=== PATIENT | female | born 1945 | race Caucasian/White ===

== ENCOUNTER 2017-09-07 11:42 | Inpatient (IN) | payer OTHER ==
[2017-09-07] VITALS (12 sets, daily range): BP systolic 129–176; BP diastolic 61–187; PULSE 68–86; TEMP 36.7–37.3; O2SAT 95–98; Ht 172.7 cm; Wt 87.7 kg
[~2017-09-07] VITALS: Ht 172.7 cm; Wt 87.7 kg
[2017-09-07] MEDS ORDERED: SODIUM CHLORIDE 0.9% 1000ML 1,000 ML IV STA (12:07)
--- NOTE | 2017-09-07 12:11 | EMERGENCY ROOM VISIT NOTE ---
History Report prepared by Nupur: Jose Doyle Under the Supervision of: Dr. Max Hackett M.D. First contact with patient: 12:05 Chief Complaint: ABNORMAL LABS Stated Complaint: LOW HEMOGLOBIN History of Present Illness The patient is a 72 year old female who presents to the Emergency Room with an abnormal lab that was detected prior to arrival today. She says that she was seen by her family doctor yesterday for a routine checkup, and had lab work done. She states that she was called this morning by the office that her hemoglobin was low at 6.6. The patient says that she has no symptoms, and has been tired but no more tired than usual. She notes that she had a colonoscopy a year ago and it was fine. The patient denies any fevers, chills, sweats, cough, congestion, melena, hematochezia, rectal bleeding, change in skin tone, recent weight loss, or urinary symptoms. 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 Review of Systems See HPI for pertinent positives and negatives. A total of ten systems were reviewed and were otherwise negative. Past Medical & Surgical Medical Problems: (1) Iron deficiency anemia (2) Low hemoglobin Family History Family history omitted secondary to patient's advanced age. Social History Smoking Status: Current Every Day Smoker Drug Use: none Marital Status: Occupation Status: retired Current/Historical Medications Scheduled Aspirin (Aspirin Ec), 81 MG PO DAILY Atorvastatin (Lipitor), 40 MG PO DAILY Clopidogrel (Plavix), 75 MG PO DAILY Allergies Coded Allergies: NO KNOWN DRUG ALLERGIES (Verified Allergy, Unknown, ., 09/07/17) Physical Exam Vital Signs Date Time Temp Pulse Resp B/P (MAP) Pulse Ox O2 Delivery O2 Flow Rate FiO2 09/07/17 15:05 82 16 95 09/07/17 15:00 146/89 09/07/17 14:35 78 18 100 09/07/17 14:30 138/83 09/07/17 14:05 83 26 97 09/07/17 14:03 97 Room Air 09/07/17 14:00 138/79 09/07/17 13:42 87 20 97 09/07/17 13:30 136/78 09/07/17 13:12 76 12 97 09/07/17 13:09 79 09/07/17 13:02 81 20 130/75 97 Room Air 09/07/17 13:01 130/75 09/07/17 11:49 36.9 98 20 149/77 100 Room Air Physical Exam GENERAL: Awake, alert, well-appearing, in no distress. Slightly pale. HENT: Normocephalic, atraumatic. Dry mucous membranes. EYES: Normal conjunctiva. Sclera non-icteric. NECK: Supple. No nuchal rigidity. FROM. No JVD. RESPIRATORY: Clear to auscultation. CARDIAC: Regular rate, normal rhythm. Extremities warm and well perfused. Pulses equal. ABDOMEN: Soft, non-distended. No tenderness to palpation. No rebound or guarding. No masses. RECTAL: Deferred. MUSCULOSKELETAL: Chest examination reveals no tenderness. The back is symmetrical on inspection without obvious abnormality. There is no CVA tenderness to palpation. No joint edema. LOWER EXTREMITIES: Calves are equal size bilaterally and non-tender. No edema. No discoloration. NEURO: Normal sensorium. No sensory or motor deficits noted. SKIN: No rash or jaundice noted. Slightly pale. Medical Decision & Procedures Laboratory Results 09/07/17 12:40 Red Blood Count 3.34, Mean Corpuscular Volume 73.4, Mean Corpuscular Hemoglobin 19.2, Mean Corpuscular Hemoglobin Concent 26.1, Mean Platelet Volume 10.4, Neutrophils (%) (Auto) 73.3, Lymphocytes (%) (Auto) 16.5, Monocytes (%) (Auto) 8.4, Eosinophils (%) (Auto) 0.9, Basophils (%) (Auto) 0.7, Neutrophils # (Auto) 5.97, Lymphocytes # (Auto) 1.34, Monocytes # (Auto) 0.68, Eosinophils # (Auto) 0.07, Basophils # (Auto) 0.06 09/07/17 12:40 Test 09/07/17 12:40 White Blood Count 8.14 K/uL (4.8-10.8) Red Blood Count 3.34 M/uL (4.2-5.4) Hemoglobin 6.4 g/dL (12.0-16.0) Hematocrit 24.5 % (37-47) Mean Corpuscular Volume 73.4 fL (80-100) Mean Corpuscular Hemoglobin 19.2 pg (25-34) Mean Corpuscular Hemoglobin Concent 26.1 g/dl (32-36) Platelet Count 368 K/uL (130-400) Mean Platelet Volume 10.4 fL (7.4-10.4) Neutrophils (%) (Auto) 73.3 % Lymphocytes (%) (Auto) 16.5 % Monocytes (%) (Auto) 8.4 % Eosinophils (%) (Auto) 0.9 % Basophils (%) (Auto) 0.7 % Neutrophils # (Auto) 5.97 K/uL (1.4-6.5) Lymphocytes # (Auto) 1.34 K/uL (1.2-3.4) Monocytes # (Auto) 0.68 K/uL (0.11-0.59) Eosinophils # (Auto) 0.07 K/uL (0-0.5) Basophils # (Auto) 0.06 K/uL (0-0.2) RDW Standard Deviation 57.4 fL (36.4-46.3) RDW Coefficient of Variation 21.1 % (11.5-14.5) Immature Granulocyte % (Auto) 0.2 % Immature Granulocyte # (Auto) 0.02 K/uL (0.00-0.02) Hypochromasia PRESENT Anisocytosis PRESENT Stomatocytes 2+ Anion Gap 4.0 mmol/L (3-11) Est Creatinine Clear Calc Drug Dose 80.5 ml/min Estimated GFR () 97.3 Estimated GFR (Non- 83.9 BUN/Creatinine Ratio 17.3 (10-20) Calcium Level 9.6 mg/dl (8.5-10.1) Total Bilirubin 0.3 mg/dl (0.2-1) Direct Bilirubin 0.1 mg/dl (0-0.2) Aspartate Amino Transf (AST/SGOT) 13 U/L (15-37) Alanine Aminotransferase (ALT/SGPT) 17 U/L (12-78) Alkaline Phosphatase 101 U/L (45-117) Total Protein 7.2 gm/dl (6.4-8.2) Albumin 3.3 gm/dl (3.4-5.0) Lipase 197 U/L (73-393) Laboratory results reviewed by me Medications Administered Medications (Trade) Dose Ordered Sig/Fazal Route Start Time Stop Time Status Last Admin Dose Admin Sodium Chloride 1,000 ml @ 125 mls/hr Q8H STAT IV 09/07/17 12:07 09/07/17 20:06 DC 09/07/17 12:55 125 MLS/HR ECG Indication: toxicologic Rate (beats per minute): 92 Rhythm: normal sinus Findings: no acute ischemic change, other (normal intervals) ED Course 1205: The patient was evaluated in room C2B. A complete history and physical exam was performed. 1207: Ordered NSS 1000 ml @ 125 mls/hr IV. 1350: Upon reexamination, the patient was resting. I discussed the test results and treatment plan with her. The patient expressed understanding and agreement. The patient will be evaluated for further management. 1357: I discussed the patient with Dr. Kevin Booker rock cutter - he will evaluate the patient for further treatment. Medical Decision I reviewed the patient's past medical history, medications, and the nursing notes as described above. Differential diagnosis includes but is not limited to: anemia chronic disease, anemia due to acute blood loss, anemia due to vitamin deficiency, malignancy. The patient is a 72 y/o woman with a pmhx of iron deficiency anemia who presents to the ED after having outpatient labs showing Hbg of 6.6 per HPI. Patient reports very mild generalized fatigue but nothing significant. On arrival the patient is well-appearing, in NAD, AFVSS. Labs notable for anemia with HBG 6.4. MCV 73.4. Denies any active bleeding such as black or bloody stools. Hemodynamically stable. Patient ordered for 2 units prbcs. Case d/w Ade Bowling hospitalist, who will admit the patient for further evalution and management of anemia. Medication Reconcilliation Current Medication List: was personally reviewed by me Blood Pressure Screening Patient's blood pressure: Elevated blood pressure Blood pressure disposition: Elevated BP felt to be situational Consults Time Called: 1350 Consulting Physician: Dr. Kevin Booker rock cutter Returned Call: 1350 I discussed the patient with Dr. Kevin - [facility] rock cutter - he will evaluate the patient for further treatment. Impression Primary Impression: Anemia Critical Care I have personally spent greater than 35 minutes of critical care time in the direct management of this patient. This includes bedside care, interpretation of diagnostic studies, and testing, discussion with consultants, patient, and family members, and other required patient management activities. This 35 minutes is in excess of all separately billable procedures. Scribe Attestation The scribe's documentation has been prepared under my direction and personally reviewed by me in its entirety. I confirm that the note above accurately reflects all work, treatment, procedures, and medical decision making performed by me. Departure Information Dispostion Being Evaluated By Hospitalist Referrals Madai Galvez D.O. (PCP) Patient Instructions [facility] Problem Qualifiers Primary Impression: Anemia
[2017-09-07 13:20] LABS: HEMATOCRIT 24.5 % (37-47); MEAN CELL VOLUME 73.4 fL (80-100); MEAN CORPUSCULAR HEMOGLOBIN 19.2 pg (25-34); MEAN CORPUSCULAR HGB CONC 26.1 g/dl (32-36); MEAN PLATELET VOLUME 10.4 fL (7.4-10.4); PLATELET COUNT 368 K/uL (130-400); RED BLOOD COUNT 3.34 M/uL (4.2-5.4); WHITE BLOOD COUNT 8.14 K/uL (4.8-10.8)
[2017-09-07 13:29] LABS: BUN/CREATININE RATIO 17.3 (10-20); CALCIUM 9.6 mg/dl (8.5-10.1); CREATININE 0.71 mg/dl (0.60-1.20); POTASSIUM 4.2 mmol/L (3.5-5.1)
[2017-09-07 13:37] LABS: ANISOCYTOSIS PRESENT; BASO % 0.7 %; BASO ABS # 0.06 K/uL (0-0.2); COMPLETE YES; EOS % 0.9 %; HYPOCHROMIA PRESENT; IG% 0.2 %; LYMPH % 16.5 %; LYMPH ABS # 1.34 K/uL (1.2-3.4); MONO % 8.4 %; NEUT % 73.3 %; STOMATOCYTE 2+
[2017-09-07] MEDS ORDERED: ATOR-24 PO (13:51)
[2017-09-07] MEDS ORDERED: ASPI81TA28 PO (13:51)
[2017-09-07] MEDS ORDERED: CLOP1TAB15 PO (13:51)
[2017-09-07] MEDS ORDERED: ALUMINUM/MAGNESIUM/SIMETH (MAALOX MAX) 30 ML UDC PO PRN (15:15)
[2017-09-07] MEDS ORDERED: ONDANSETRON INJ 2 MG/ML 2 ML VIAL IV PRN (15:15)
[2017-09-07 16:58] LABS: MANUAL MICROSCOPIC REQUIRED? NO; REVIEW REQ? NO; URINE APPEARANCE CLEAR (CLEAR); URINE BILIRUBIN NEG (NEG); URINE COLOR YELLOW; URINE NITRITE NEG (NEG); URINE PH 7.5 (4.5-7.5); URINE SPECIFIC GRAVITY 1.012 (1.000-1.030); UROBILINOGEN NEG (NEG); ZZUR CULT IF INDIC CLEAN CATCH NO
[2017-09-07] MEDS: SODIUM CHLORIDE 0.9% 1000ML 1,000 ML IV SCH (20:17)
--- NOTE | 2017-09-07 20:44 | History and Physical ---
History & Physical Date & Time of Service: Sep 07, 2017 at 20:20 Chief Complaint: Anemia, Iron Deficiency Anemia Primary Care Physician: Madai Galvez D.O. History of Present Illness Source: patient, family, clinic records, hospital records This is a 72 year old female with a PMH of peripheral vascular disease s/p stenting of the superficial femoral artery on the L, tobacco use disorder, iron deficiency anemia - sent from Dr. Galvez's office due to low Hgb in the 6 range. As per patient, her only symptoms is fatigue. Denies shortness of breath/ chest pain, denies abdominal pain, denies blood in the stool or urine. Upon presentation, she had Hgb of 6.4. She states she's had this anemia problem in the past and was once receiving IV Venofer infusions. At some point, a few years back, she states that her iron levels normalized and this was stopped. She has not been on iron supplementation since then. States for the past year, she has a stent placed in her L SFA. Has been on Plavix since then. Does not have any signs of bleeding. Past Medical/Surgical History Medical Problems: (1) Low hemoglobin Status: Chronic Social History Smoking Status: Current Every Day Smoker Drug Use: none Marital Status: Occupational Status: retired Allergies Coded Allergies: NO KNOWN DRUG ALLERGIES (Verified Allergy, Unknown, ., 09/07/17) Home Medications Scheduled Aspirin (Aspirin Ec), 81 MG PO DAILY Atorvastatin (Lipitor), 40 MG PO DAILY Clopidogrel (Plavix), 75 MG PO DAILY Review of Systems Constitutional: + weakness, + fatigue, No fever, No chills Eyes: No worsening of vision ENT: No hearing loss Respiratory: No cough, No sputum, No wheezing, No shortness of breath, No dyspnea on exertion, No dyspnea at rest, No hemoptysis Cardiovascular: No chest pain, No edema, No palpitations Abdomen: No pain, No nausea, No vomiting, No diarrhea, No constipation, No GI bleeding Musculoskeletal: No joint pain, No muscle pain Genitourinary - Female: No dysuria, No urinary frequency, No urinary urgency, No hematuria Neurologic: No weakness, No numbness/tingling Psychiatric: No depression symptoms, No anxiety, No insomnia Endocrine: No fatigue Hematologic / Lymphatic: No abnormal bleeding/bruising, No clotting problems, No swollen lymph nodes Integumentary: No rash Allergic / Immunologic: No environmental allergies, No seasonal allergies Physical Exam Vital Signs Date Time Temp Pulse Resp B/P (MAP) Pulse Ox O2 Delivery O2 Flow Rate FiO2 09/07/17 19:33 37.1 86 18 143/62 (89) 97 Room Air 09/07/17 19:30 37.1 86 18 143/62 97 09/07/17 18:48 37.2 70 18 164/86 96 09/07/17 18:00 37.3 70 18 173/89 96 09/07/17 17:46 37.0 69 162/61 97 09/07/17 17:30 37.2 75 18 167/187 95 09/07/17 16:45 36.9 86 16 176/81 (112) 97 Room Air 0.0 09/07/17 16:45 95 Room Air 09/07/17 16:38 36.8 74 22 144/71 97 09/07/17 16:37 74 22 144/71 97 Room Air 09/07/17 16:00 144/92 09/07/17 15:51 74 22 97 09/07/17 15:46 150/89 09/07/17 15:46 36.8 70 18 150/89 97 09/07/17 15:35 79 18 95 09/07/17 15:31 36.8 78 18 152/99 96 09/07/17 15:30 152/99 09/07/17 15:15 144/87 09/07/17 15:15 36.7 81 16 144/87 97 0.0 09/07/17 15:05 82 16 95 09/07/17 15:00 146/89 09/07/17 14:35 78 18 100 09/07/17 14:30 138/83 09/07/17 14:05 83 26 97 09/07/17 14:03 97 Room Air 09/07/17 14:00 138/79 09/07/17 13:42 87 20 97 09/07/17 13:30 136/78 09/07/17 13:12 76 12 97 09/07/17 13:09 79 09/07/17 13:02 81 20 130/75 97 Room Air 09/07/17 13:01 130/75 09/07/17 11:49 36.9 98 20 149/77 100 Room Air General Appearance: no apparent distress Head: normocephalic, atraumatic Eyes: normal inspection ENT: hearing grossly normal Neck: supple Respiratory/Chest: chest non-tender, lungs clear, normal breath sounds, no respiratory distress, no accessory muscle use Cardiovascular: regular rate, rhythm, no edema, no gallop, no JVD, no murmur, normal peripheral pulses Abdomen/GI: normal bowel sounds, non tender, soft Extremities/Musculoskelatal: normal inspection, no calf tenderness, normal capillary refill, no pedal edema, normal range of motion Neurologic/Psych: 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, no motor/sensory deficits, alert, normal mood/affect, oriented x 3 Skin: normal color Lymphatic: no adenopathy Diagnostics Laboratory Results Results Past 24 Hours Test 09/07/17 12:40 09/07/17 16:40 09/07/17 20:00 Range/Units White Blood Count 8.14 4.8-10.8 K/uL Red Blood Count 3.34 4.2-5.4 M/uL Hemoglobin 6.4 12.0-16.0 g/dL Hematocrit 24.5 37-47 % Mean Corpuscular Volume 73.4 80-100 fL Mean Corpuscular Hemoglobin 19.2 25-34 pg Mean Corpuscular Hemoglobin Concent 26.1 32-36 g/dl Platelet Count 368 130-400 K/uL Mean Platelet Volume 10.4 7.4-10.4 fL Neutrophils (%) (Auto) 73.3 % Lymphocytes (%) (Auto) 16.5 % Monocytes (%) (Auto) 8.4 % Eosinophils (%) (Auto) 0.9 % Basophils (%) (Auto) 0.7 % Neutrophils # (Auto) 5.97 1.4-6.5 K/uL Lymphocytes # (Auto) 1.34 1.2-3.4 K/uL Monocytes # (Auto) 0.68 0.11-0.59 K/uL Eosinophils # (Auto) 0.07 0-0.5 K/uL Basophils # (Auto) 0.06 0-0.2 K/uL RDW Standard Deviation 57.4 36.4-46.3 fL RDW Coefficient of Variation 21.1 11.5-14.5 % Immature Granulocyte % (Auto) 0.2 % Immature Granulocyte # (Auto) 0.02 0.00-0.02 K/uL Hypochromasia PRESENT Anisocytosis PRESENT Stomatocytes 2+ Sodium Level 137 136-145 mmol/L Potassium Level 4.2 3.5-5.1 mmol/L Chloride Level 107 98-107 mmol/L Carbon Dioxide Level 26 21-32 mmol/L Anion Gap 4.0 3-11 mmol/L Blood Urea Nitrogen 12 7-18 mg/dl Creatinine 0.71 0.60-1.20 mg/dl Est Creatinine Clear Calc Drug Dose 80.5 ml/min Estimated GFR () 97.3 Estimated GFR (Non- 83.9 BUN/Creatinine Ratio 17.3 10-20 Random Glucose 103 70-99 mg/dl Calcium Level 9.6 8.5-10.1 mg/dl Total Bilirubin 0.3 0.2-1 mg/dl Direct Bilirubin 0.1 0-0.2 mg/dl Aspartate Amino Transf (AST/SGOT) 13 15-37 U/L Alanine Aminotransferase (ALT/SGPT) 17 12-78 U/L Alkaline Phosphatase 101 45-117 U/L Total Protein 7.2 6.4-8.2 gm/dl Albumin 3.3 3.4-5.0 gm/dl Lipase 197 73-393 U/L Urine Color YELLOW Urine Appearance CLEAR CLEAR Urine pH 7.5 4.5-7.5 Urine Specific [place] 1.012 1.000-1.030 Urine Protein NEG NEG Urine Glucose (UA) NEG NEG Urine Ketones NEG NEG Urine Occult Blood NEG NEG Urine Nitrite NEG NEG Urine Bilirubin NEG NEG Urine Urobilinogen NEG NEG Urine Leukocyte Esterase TRACE NEG Urine WBC (Auto) 1-5 0-5 /hpf Urine RBC (Auto) 0-4 0-4 /hpf Urine Hyaline Casts (Auto) 0 0-5 /lpf Urine Epithelial Cells (Auto) 5-10 0-5 /lpf Urine Bacteria (Auto) NEG NEG EKG Normal sinus rhythm Normal ECG Impression Assessment and Plan This is a 72 year old female with a PMH of peripheral vascular disease s/p stenting of the superficial femoral artery on the L, tobacco use disorder, iron deficiency anemia - sent from PCP due to anemia Anemia iron deficiency anemia, no signs of bleeding will check stool occult, check UA for hematuria Hgb is 6.4 transfuse two units pRBCs check H/H four hours post-transfusion, check CBC in AM started on ferrous sulfate 325mg - outpatient labwork suggests iron deficiency, with low iron levels, high TIBC holding aspirin and Plavix for now consult GI for possible colonoscopy Peripheral Vascular Disease outpatient vascular follow-up continue statin hold aspirin + Plavix for now due to anemia Tobacco Use Disorder counseled on cessation DVT ppx SCDs FULL CODE Advanced Directives Existing Living Will: No Existing Power of Car Seat Upholsterer: No VTE Prophylaxis VTE Risk Assessment Done? Y/N: Yes Risk Level: Moderate
[2017-09-07 21:37] LABS: HEMATOCRIT 27.7 % (37-47)
[2017-09-08 04:00] VITALS: BP 171/77; PULSE 69; TEMP 37.1; O2SAT 98
[2017-09-08 07:25] LABS: HEMATOCRIT 27.9 % (37-47); MEAN CORPUSCULAR HEMOGLOBIN 21.2 pg (25-34); MEAN CORPUSCULAR HGB CONC 28.3 g/dl (32-36); MEAN PLATELET VOLUME 10.1 fL (7.4-10.4); PLATELET COUNT 315 K/uL (130-400); RED BLOOD COUNT 3.72 M/uL (4.2-5.4); WHITE BLOOD COUNT 7.15 K/uL (4.8-10.8)
[2017-09-08 07:38] LABS: CALCIUM 8.9 mg/dl (8.5-10.1); CREATININE 0.69 mg/dl (0.60-1.20); POTASSIUM 3.8 mmol/L (3.5-5.1)
[2017-09-08] MEDS: ATORVASTATIN 40 MG TAB PO SCH (07:39)
[2017-09-08] MEDS: FERROUS SULFATE 325 MG TAB PO SCH (07:39)
[2017-09-08 07:44] VITALS: BP 174/83; PULSE 86; TEMP 37.1; O2SAT 97
[2017-09-08] MEDS: SODIUM CHLORIDE 0.9% 1000ML 1,000 ML IV SCH ×2 (10:28→16:03)
[2017-09-08 11:34] VITALS: BP 166/86; PULSE 69; TEMP 37.1; O2SAT 97
[2017-09-08] MEDS ORDERED: NURSING VERBAL MED ORDER ONE (12:00)
[2017-09-08 15:12] VITALS: BP 138/71; PULSE 71; TEMP 36.8; O2SAT 96
--- NOTE | 2017-09-08 15:54 | GASTROINTESTINAL CONSULTATION ---
DATE OF CONSULTATION: 09/08/2017 AGE: 72. SEX: Female. RACE: . ATTENDING PHYSICIAN: Nissa Brown DO CONSULTING PHYSICIAN: Gigi Carrillo DO REASON FOR CONSULTATION: Iron deficiency anemia. HISTORY OF PRESENT ILLNESS: Mira Jett is a 72-year-old female with a past medical history of peripheral vascular disease with a stent of the femoral artery on the left side, most likely associated with her past tobacco use. She was having outpatient blood work done and was noted to have an H&H in the range of 6 on Saturday and was subsequently contacted and told to be evaluated at the Department of Emergency Medicine on Saturday. Upon arrival, she was noted to have an H&H of 6.4 and 24.5. She did receive 2 units of packed red blood cells and had improvement of her H&H to 8.0 and 27.7. The patient herself denies any abdominal pain. She does state that she takes ibuprofen intermittently approximately 2-3 times a week. She states that she has had no evidence of hematemesis or melena and does admit to having a colonoscopy done within the past year by Dr. Dan at [facility] endoscopy at [facility]. She states that she was told that her colonoscopy was essentially normal, although I do not have these records at present. She has never undergone an upper endoscopy. She denies any lightheadedness, dizziness, fevers, chills, nausea, vomiting, chest pain, shortness of breath, cough, dysuria, hematuria, arthralgias, myalgias, numbness or tingling in her extremities, skin rash or any other complaints at present. PAST MEDICAL HISTORY: Significant for peripheral artery disease, iron deficiency anemia of unknown cause, hyperlipidemia. PAST SURGICAL HISTORY: Includes the femoral artery stent on the left as well as a colonoscopy done last year by Dr. Dan. ALLERGIES: None. MEDICATIONS: At present include Feosol 325 mg p.o. q.a.m., Lipitor 40 mg p.o. daily, Maalox 15 mL p.o. q. 4 p.r.n. dyspepsia, Zofran 4 mg IV q. 6 p.r.n. nausea. SOCIAL HISTORY: She is . She continues to smoke daily. She denies any alcohol or illicit drug use. FAMILY HISTORY: Negative for GI malignancy or inflammatory bowel disease. REVIEW OF SYSTEMS: Negative x12 system review other than pertinent positives listed in the HPI. PHYSICAL EXAMINATION: VITAL SIGNS: Temperature 37.1, pulse 69, respirations 18, blood pressure 166/86, pulse ox 97% on room air. GENERAL: Awake, cooperative in no acute distress. HEAD: Normocephalic, atraumatic. EYES: Pupils equally round. Extraocular muscles are intact. ENT: External evaluation of ears and nose are normal. Oropharynx is clear. NECK: Soft, supple. No JVD or lymphadenopathy. CHEST: Clear to auscultation bilaterally. CARDIOVASCULAR SYSTEM: Regular rate and rhythm. ABDOMEN: Soft, nontender, nondistended. Positive bowel sounds. There is no hepatosplenomegaly or stigmata of chronic liver disease. EXTREMITIES: No clubbing, cyanosis, or edema. SKIN: Noted pallor. LABORATORY STUDIES: Reviewed in the HPI. IMPRESSION: A 72-year-old female with iron deficiency anemia of unknown etiology. PLAN: At the present time, I would recommend the addition of Protonix 40 mg by mouth twice daily. I would also recommend that she be given clear liquids today, be kept n.p.o. after midnight and undergo an upper endoscopy tomorrow. It is unlikely that she has a lower GI bleeding source as she has seen no blood and had a colonoscopy by Dr. Dan within the past year. I would recommend transfusing her as needed to maintain her H&H around 8 and 24. Once again, thanks for allowing me to participate in the care of this patient. If you have any further questions, please do not hesitate in contacting me.
[2017-09-08 17:55] LABS: HEMATOCRIT 28.9 % (37-47); MEAN CELL VOLUME 76.1 fL (80-100); MEAN CORPUSCULAR HEMOGLOBIN 21.6 pg (25-34); MEAN CORPUSCULAR HGB CONC 28.4 g/dl (32-36); MEAN PLATELET VOLUME 10.6 fL (7.4-10.4); PLATELET COUNT 342 K/uL (130-400); WHITE BLOOD COUNT 7.34 K/uL (4.8-10.8)
--- NOTE | 2017-09-08 19:19 | Progress Note ---
Medicine Progress Note Date & Time of Visit: Sep 08, 2017 at 19:19. Subjective Patient reports feeling well; denies any CP, SOB, palpitations, dizziness or lightheadedness. Has been ambulating without difficulty. No overnight events noted. No other complaints. Objective Last 8 Hrs Date Time Temp Pulse Resp B/P (MAP) Pulse Ox O2 Delivery O2 Flow Rate FiO2 09/08/17 16:00 Room Air 09/08/17 15:12 36.8 71 16 138/71 (93) 96 Room Air 09/08/17 12:00 Room Air 09/08/17 11:34 37.1 69 18 166/86 (112) 97 Room Air Physical Exam: GENERAL: Patient is in no acute distress. HEENT: No acute trauma, normocephalic, mucous membranes moist, no nasal congestion, no scleral icterus. NECK: No stridor, trachea is midline. LUNGS: Clear to auscultation bilaterally, no wheeze, no rhonchi, breath sounds equal. HEART: Without murmurs gallops or rubs, regular rate and rhythm. ABDOMEN: Soft, nontender, bowel sounds positive EXTREMITIES: No cyanosis or edema NEUROLOGIC: Oriented x 3, no acute motor or sensory deficits, no focal weakness. SKIN: No rash, no jaundice, no diaphoresis. Laboratory Results: Last 24 Hours Test 09/07/17 21:12 09/08/17 06:42 09/08/17 17:09 Hemoglobin 8.0 g/dL 7.9 g/dL 8.2 g/dL Hematocrit 27.7 % 27.9 % 28.9 % White Blood Count 7.15 K/uL 7.34 K/uL Red Blood Count 3.72 M/uL 3.80 M/uL Mean Corpuscular Volume 75.0 fL 76.1 fL Mean Corpuscular Hemoglobin 21.2 pg 21.6 pg Mean Corpuscular Hemoglobin Concent 28.3 g/dl 28.4 g/dl RDW Standard Deviation 55.6 fL 56.7 fL RDW Coefficient of Variation 20.3 % 20.3 % Platelet Count 315 K/uL 342 K/uL Mean Platelet Volume 10.1 fL 10.6 fL Sodium Level 141 mmol/L Potassium Level 3.8 mmol/L Chloride Level 109 mmol/L Carbon Dioxide Level 25 mmol/L Anion Gap 7.0 mmol/L Blood Urea Nitrogen 10 mg/dl Creatinine 0.69 mg/dl Est Creatinine Clear Calc Drug Dose 83.2 ml/min Estimated GFR () 99.4 Estimated GFR (Non- 85.8 BUN/Creatinine Ratio 15.0 Random Glucose 89 mg/dl Calcium Level 8.9 mg/dl Assessment & Plan ANEMIA: iron deficiency -iron deficiency anemia, no signs of bleeding -check FOBT -Hb was 6.4-->received transfusion with 2 units PRBCs-->8.0-->Hb: 8.2 today -continue on ferrous sulfate 325mg - outpatient labwork suggests iron deficiency , with low iron levels, high TIBC -holding aspirin and Plavix for now -GI consulted, planning for endoscopy tomorrow; NPO after midnight PVD: -no acute issues -outpatient vascular follow-up -continue statin -aspirin + Plavix held for now due to anemia NICOTINE DEPENDANCE: -smoking cessation encouraged Current Inpatient Medications: Current Inpatient Medications Medications (Trade) Dose Ordered Sig/Fazal Route Start Time Stop Time Status Last Admin Dose Admin Sodium Chloride 1,000 ml @ 80 mls/hr [id number] IV 09/07/17 16:30 10/07/17 16:29 09/07/17 20:17 80 MLS/HR Al Hydrox/Mg Hydrox/Simethicone (Maalox Max Susp) 15 ml Q4H PRN PO 09/07/17 15:15 10/07/17 15:14 Ondansetron HCl (Zofran Inj) 4 mg Q6H PRN IV 09/07/17 15:15 10/07/17 15:14 Ferrous Sulfate (Feosol Tab) 325 mg QAM PO 09/08/17 09:00 10/08/17 08:59 09/08/17 07:39 325 MG Atorvastatin Calcium (Lipitor Tab) 40 mg DAILY PO 09/08/17 09:00 10/08/17 08:59 09/08/17 07:39 40 MG Pantoprazole Sodium (Protonix Tab) 40 mg BID PO 09/08/17 21:00 10/08/17 20:59
[2017-09-08 19:22] VITALS: BP 154/82; PULSE 67; TEMP 37.2; O2SAT 98
[2017-09-08] MEDS: PANTOprazole SOD 40 MG TAB PO SCH (21:06)
[2017-09-08 23:17] VITALS: BP 152/81; PULSE 66; TEMP 36.6; O2SAT 97
[2017-09-09 03:45] VITALS: BP 151/77; PULSE 66; TEMP 37.2; O2SAT 94
[2017-09-09] MEDS ORDERED: NURSING VERBAL MED ORDER ONE (06:15)
[2017-09-09 08:08] VITALS: BP 133/71; PULSE 69; TEMP 37.1; O2SAT 94
[2017-09-09] MEDS: FERROUS SULFATE 325 MG TAB PO SCH (08:54)
[2017-09-09] MEDS: ATORVASTATIN 40 MG TAB PO SCH (08:54)
[2017-09-09] MEDS: PANTOprazole SOD 40 MG TAB PO SCH (08:55)
[2017-09-09] MEDS ORDERED: SODIUM CHLORIDE 0.9% 500ML 500 ML IV ONE (11:13)
--- NOTE | 2017-09-09 11:21 | Endo History and Physical ---
History & Physical Date of Service: Sep 09, 2017. Chief Complaint: Referring Physician: History of Present Illness Patient for EGD for FLAKO Past Surgical History Hx Cardiac Surgery: No Hx Abdominal Surgery: No Hx Post-Op Nausea and Vomiting: No Hx Cancer Surgery: No Hx Thoracic Surgery: No Hx Orthopedic: No Hx Urinary Tract Surgery: No Social History Smoking Status: Current Every Day Smoker Hx Substance Use: No Hx Alcohol Use: Yes (very seldom, last night last time, 3 X year) Allergies Coded Allergies: NO KNOWN DRUG ALLERGIES (Verified Allergy, Unknown, ., 09/07/17) Current Medications Reported Home Medications Medications Dose Route/Sig Max Daily Dose Days Date Category Lipitor (Atorvastatin Calcium) 40 Mg Tab 40 Mg PO DAILY 09/07/17 Reported Aspirin Ec (Aspirin) 81 Mg Tab 81 Mg PO DAILY 09/07/17 Reported Plavix (Clopidogrel Bisulfate) 75 Mg Tab 75 Mg PO DAILY 09/07/17 Reported Vital Signs Weight (Kilograms): 87.700 Height (Feet): 5 Height (Inches): 8.00 Date Time Temp Pulse Resp B/P (MAP) Pulse Ox O2 Delivery O2 Flow Rate FiO2 09/09/17 10:39 36.8 76 20 147/71 (96) 96 Room Air 09/09/17 08:08 37.1 69 18 133/71 (91) 94 Room Air 09/09/17 08:00 Room Air 09/09/17 04:00 Room Air 09/09/17 03:45 37.2 66 18 151/77 (101) 94 Room Air 09/09/17 00:00 Room Air 09/08/17 23:17 36.6 66 20 152/81 (104) 97 Room Air 09/08/17 20:00 Room Air 09/08/17 19:22 37.2 67 18 154/82 (106) 98 Room Air 09/08/17 16:00 Room Air 09/08/17 15:12 36.8 71 16 138/71 (93) 96 Room Air 09/08/17 12:00 Room Air 09/08/17 11:34 37.1 69 18 166/86 (112) 97 Room Air Physical Exam General Appearance: no apparent distress Respiratory/Chest: Auscultation: breath sounds normal Cardiovascular: Heart Auscultation: RRR Abdomen: Bowel Sounds: normal Inspection & Palpation: soft, non-distended Assessment and Plan Stable for EGD. Consented.
[2017-09-09] MEDS ORDERED: LIDOCAINE HCL 2% 2 ML VIAL (20MG/ML) ONE (11:39)
[2017-09-09] MEDS ORDERED: PROPOFOL IV EMULSION 10 MG/ML 20 ML VIAL IV ONE (11:39)
--- NOTE | 2017-09-09 11:44 | GI REPORT ---
Procedure Date: 09/09/2017 10:47 AM Procedure: Upper GI endoscopy Indications: Iron deficiency anemia Medicines: Monitored Anesthesia Care Complications: No immediate complications. Estimated Blood Loss: Estimated blood loss: none. Procedure: Pre-Anesthesia Assessment: - Prior to the procedure, a History and Physical was performed, and patient medications and allergies were reviewed. The patient is competent. The risks and benefits of the procedure and the sedation options and risks were discussed with the patient. All questions were answered and informed consent was obtained. Patient identification and proposed procedure were verified by the physician and the nurse in the procedure room. Mental Status Examination: alert and oriented. Airway Examination: normal oropharyngeal airway and neck mobility. Respiratory Examination: clear to auscultation. CV Examination: normal. ASA Grade Assessment: III - A patient with severe systemic disease. After reviewing the risks and benefits, the patient was deemed in satisfactory condition to undergo the procedure. The anesthesia plan was to use monitored anesthesia care (MAC). Immediately prior to administration of medications, the patient was re-assessed for adequacy to receive sedatives. The heart rate, respiratory rate, oxygen saturations, blood pressure, adequacy of pulmonary ventilation, and response to care were monitored throughout the procedure. The physical status of the patient was re-assessed after the procedure. After obtaining informed consent, the endoscope was passed under direct vision. Throughout the procedure, the patient's blood pressure, pulse, and oxygen saturations were monitored continuously. The scope was introduced through the mouth, and advanced to the second part of duodenum. The upper GI endoscopy was accomplished without difficulty. The patient tolerated the procedure well. Findings: LA Grade C (one or more mucosal breaks continuous between tops of 2 or more mucosal folds, less than 75% circumference) esophagitis/ Carditis with no bleeding was found in the lower third of the esophagus. A small hiatus hernia was present. Z-line at 40cm from incisors. A few, small non-bleeding erosions were found in the gastric antrum. Biopsies were taken with a cold forceps for Helicobacter pylori testing. Verification of patient identification for the specimen was done by the physician and nurse using the patient's name and date. The duodenal bulb and 2nd part of the duodenum were normal. Impression: - LA Grade C reflux esophagitis/ Carditis. - Small hiatus hernia. - Non-bleeding erosive gastropathy. Biopsied. - Normal duodenal bulb and 2nd part of the duodenum. Recommendation: - [facility] patient to [facility] care. - Resume regular diet. - Follow an antireflux regimen. - Use Protonix (pantoprazole) 40 mg PO BID for 2 months then continue once daily based on symptoms. - Repeat the upper endoscopy in 2 months to check healing. - Can resume anticoagulant/ antiplatelets at prior dose. Basia Ochoa MD 09/09/2017 11:43:33 AM This report has been signed electronically. Note Initiated On: 09/09/2017 10:47 AM I attest to the content of the Intraoperative Record and orders documented therein, exceptions below
--- NOTE | 2017-09-09 12:15 | Anesthesiology Progress Note ---
Anesthesia Post Op Note Date & Time Sep 09, 2017 at 12:14 Vital Signs Pain Intensity: 0.0 Vital Signs Past 12 Hours Date Time Temp Pulse Resp B/P (MAP) Pulse Ox O2 Delivery O2 Flow Rate FiO2 09/09/17 12:11 68 16 154/78 (103) 95 Room Air 09/09/17 11:56 67 16 146/77 (100) 96 Room Air 09/09/17 11:41 77 16 120/66 (84) 95 Room Air 09/09/17 10:39 36.8 76 20 147/71 (96) 96 Room Air 09/09/17 08:08 37.1 69 18 133/71 (91) 94 Room Air 09/09/17 08:00 Room Air 09/09/17 04:00 Room Air 09/09/17 03:45 37.2 66 18 151/77 (101) 94 Room Air Notes Mental Status: alert / awake / arousable, participated in evaluation Pt Amnestic to Procedure: Yes Nausea / Vomiting: adequately controlled Pain: adequately controlled Airway Patency, RR, SpO2: stable & adequate BP & HR: stable & adequate Hydration State: stable & adequate Anesthetic Complications: no major complications apparent
[2017-09-09 13:10] VITALS: BP 155/80; PULSE 67; TEMP 36.9; O2SAT 95
[2017-09-09 14:27] VITALS: BP 128/63; PULSE 76
[2017-09-09] MEDS ORDERED: PRT40 PO (14:44)
--- NOTE | 2017-09-09 14:47 | Discharge Instructions ---
Discharge Instructions Date of Service Sep 09, 2017. Admission Reason for Admission: Anemia, Iron Deficiency Anemia Discharge Discharge Diagnosis / Problem: Anemia, iron deficiency Discharge Goals Goal(s): Therapeutic intervention Activity Recommendations Activity Limitations: resume your previous activity . Instructions / Follow-Up Instructions / Follow-Up Please take the iron supplement Ferrous sulfate 325 mg, twice a day with meals and use Miralax (or generic brand) one capful 1-2 times daily to help with constipation Please see Dr. Galvez on Saturday, September 16 at 3:45PM for hospital follow up and repeat labs Please see GI for a repeat EGD in 2 months Current Hospital Diet Patient's current hospital diet: AHA Diet (Heart Healthy) Discharge Diet Recommended Diet: AHA Diet (Heart Healthy) Procedures Procedures Performed: EGD Pending Studies Studies pending at discharge: no Medical Emergencies . Who to Call and When: Medical Emergencies: If at any time you feel your situation is an emergency, please call 911 immediately. . Non-Emergent Contact Non-Emergency issues call your: Primary Care Provider . . "Provider Documentation" section prepared by Lauren Coyle. . VTE Core Measure Inpt VTE Proph given/why not?: SCD's
--- NOTE | 2017-09-09 14:49 | Discharge Summary ---
Discharge Summary Date of Service Sep 09, 2017. Discharge Summary Admission Date: Sep 07, 2017 at 15:12 Discharge Date: Sep 09, 2017 Admission Information HPI (per Admitting provider): This is a 72 year old female with a PMH of peripheral vascular disease s/p stenting of the superficial femoral artery on the L, tobacco use disorder, iron deficiency anemia - sent from Dr. Galvez's office due to low Hgb in the 6 range. As per patient, her only symptoms is fatigue. Denies shortness of breath/ chest pain, denies abdominal pain, denies blood in the stool or urine. Upon presentation, she had Hgb of 6.4. She states she's had this anemia problem in the past and was once receiving IV Venofer infusions. At some point, a few years back, she states that her iron levels normalized and this was stopped. She has not been on iron supplementation since then. States for the past year, she has a stent placed in her L SFA. Has been on Plavix since then. Does not have any signs of bleeding. 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, no motor/sensory deficits, alert , normal mood/affect, oriented x 3 Skin: normal color Lymphatic: no adenopathy Hospital Course ANEMIA: iron deficiency -iron deficiency anemia, no signs of bleeding -check FOBT -Hb was 6.4-->received transfusion with 2 units PRBCs-->8.0-->Hb: 8.2 today -continue on ferrous sulfate 325mg - outpatient labwork suggests iron deficiency , with low iron levels, high TIBC -holding aspirin and Plavix for now -GI consulted, planning for endoscopy tomorrow; NPO after midnight PVD: -no acute issues -outpatient vascular follow-up -continue statin -aspirin + Plavix held for now due to anemia NICOTINE DEPENDANCE: -smoking cessation encouraged Total time spent on discharge = This includes examination of the patient, discharge planning, medication reconciliation, and communication with other providers.
[2017-09-09 15:05] VITALS: BP 128/63; PULSE 76; TEMP 36.9; O2SAT 95
== END 2017-09-09 15:30 | disposition home or self-care (01) | DRG 812 ==
LOC: C.EDB 11:44 → C.2E 15:12 → ENRESERV 15:34
PROVIDERS: ADMIT Family Medicine; ATTEND Internal Medicine
PROC: 0DB68ZX Excision of Stomach, Via Natural or Artificial Opening Endoscopic, Diagnostic (ICD-10-PCS; principal; 2017-09-09 10:33)
DX: D50.9 Iron deficiency anemia, unspecified (principal); F17.200 Nicotine dependence, unspecified, uncomplicated; Z95.828 Presence of other vascular implants and grafts; I73.9 Peripheral vascular disease, unspecified; Z79.01 Long term (current) use of anticoagulants; K29.00 Acute gastritis without bleeding; K44.9 Diaphragmatic hernia without obstruction or gangrene

== ENCOUNTER → 2017-12-24 | Day surgery (SDC) | payer OTHER ==
[2017-11-27 13:34] VITALS: Ht 175.3 cm; Wt 84.1 kg
[~2017-12-24] VITALS: Ht 175.3 cm; Wt 84.1 kg
[~2017-12-24] MED LIST: 500ML BSS 0.3ML EPI 1:1000PF IRRIG ONE; ACETAMINOPHEN 325 MG TAB PO PRN; AMVISC PLUS 0.8ML SYRINGE INT OCU ONE; ASPCH81X PO; ATOR-24 PO; ATROPINE SULFATE 0.1 MG/ML 5ML SYR IV PRN; BSS FLUSH ONE; EpHEDrine SULFATE INJ 50 MG/ML AMP IV PRN; EpINEphrine INJ 1MG/ML AMP 1 MG/ML AMP ONE; FENTANYL CITRATE INJ 50 MCG/1 ML 2 ML VIAL IV PRN; IRON PO; LACTATED RINGER'S 1000ML 500 ML IV SCH; LIDOCAINE 3.5% OPH GEL PER APPLICATION CHARGE ONE; LIDOCAINE HCL 1% MPF 2 ML VIAL ONE; MIDAZOLAM HCL 1 MG/ML 2ML VIAL ONE; OCUCOAT 1 ML SOLN IO ONE; ONDANSETRON INJ 2 MG/ML 2 ML VIAL IV PRN; PANT1TAB3 PO; PLAVIX75 PO; POVIDONE-IODINE OP SOLN 30 ML BTL ONE; PROPARACAINE 0.5% OP SOLN PER DROP CHARGE OPL SCH; TOBRAMYCIN/DEXAMETHASONE OPH OINT PER APPLN CHARGE ONE
[2017-12-24] MEDS: PHENYLEPHRINE HCL 2.5% OP SOLN PER DROP CHARGE OPL SCH ×2 (07:50→07:55)
[2017-12-24] MEDS: TROPICAMIDE 1% OP SOLN PER DROP CHARGE OPL SCH ×2 (07:51→07:56)
[2017-12-24] MEDS: CYCLOPENTOLATE HCL 1% OP SOLN PER DROP CHARGE OPL SCH ×2 (07:52→07:57)
[2017-12-24] MEDS: KETOROLAC 0.5% OP SOLN PER DROP CHARGE OPL SCH ×2 (07:53→07:58)
[2017-12-24] MEDS: GATIFLOXACIN OP SOLN PER DROP CHARGE OPL SCH ×2 (07:54→08:04)
--- NOTE | 2017-12-24 08:23 | History & Physical Bridge - SC ---
H&P Re-Evaluation Bridge Note: I have examined the patient, reviewed the History & Physical and in the interval since the performance of the History & Physical I have noted the following changes of clinical significance: No changes noted
--- NOTE | 2017-12-24 09:13 | [facility] Operative Report ---
Operative Report Date of Service Dec 24, 2017. Operative Report 1. PREOPERATIVE DIAGNOSIS: Cataract of the left eye. 2. POSTOPERATIVE DIAGNOSIS: Same. 3. PROCEDURE: Phacoemulsification with intraocular lens implantation of the left eye. SURGEON: Dr. Ronny Kennedy. ANESTHESIA: Topical Lidocaine gel, 1% Non- Preserved intracameral Lidocaine, and monitored intravenous sedation. INDICATIONS FOR THE PROCEDURE: The patient is a 72 - year-old female with a history of cataract of the left eye causing significant visual impairment. The details of the proposed procedure were explained to the patient who asked appropriate questions and following discussion of all risks, benefits and alternatives agreed to have the procedure done. 4. OPERATION AND FINDINGS: DESCRIPTION OF PROCEDURE: After informed consent was obtained, the patient was brought to the Operating Room at the [facility]. The patient was placed in a supine position and then the left eye was prepped and draped in the usual sterile fashion for intraocular surgery. A drop of topical Lidocaine gel was placed in the operative eye. A wire lid speculum was then placed in the fornices. A corneal paracentesis was then created temporally. The Non-Preserved Lidocaine was then instilled into the anterior chamber. The anterior chamber was then pressurized with viscoelastic. A 2.0 mm clear corneal incision was then created temporally. A cystotome was inserted into the anterior chamber and used to create a tear in the anterior lens capsule. This capsular tear was then used to create a small flap and the flap was dragged in a counterclockwise direction in order to create a continuous curvilinear capsulorrhexis. Hydrodissection was accomplished with balanced salt solution. Phacoemulsification of the lens nucleus was then performed in a standard [id number] technique. The phaco time was 53 seconds with an average power of 25 %. The remaining cortical material was removed using irrigation aspiration. The capsular bag was then filled with viscoelastic. A [employer] MI60L +18.5 diopters lens was then loaded into the injector and injected into the capsular bag. The remaining viscoelastic was removed with the irrigation aspiration handpiece. The wound was hydrated and then checked and found to be watertight. The intraocular pressure was checked and found to be adequate. The wire lid speculum was removed and the patient's face was cleaned and dried. TobraDex ointment was placed in the inferior fornix. The patient was discharged to the Recovery Room having tolerated the procedure well. There were no complications. The patient will be seen tomorrow in the office for follow-up. I attest to the content of the Intraoperative Record and any orders documented therein. Any exceptions are noted below.
--- NOTE | 2017-12-24 09:14 | Discharge Instructions-SurgCtr ---
Discharge Instructions Date of Service Dec 24, 2017. Visit Reason for Visit: Cataract Left Eye Discharge Discharge Diagnosis / Problem: cataract Discharge Goals Goal(s): Improve function Activity Recommendations Activity Limitations: per Instructions/Follow-up section Anesthesia . Post Anesthesia Instructions: If you have had General Anesthesia or IV Sedation: * Do not drive today. * Resume driving when surgeon permits. * Do not make important decisions or sign legal documents today. * Call surgeon for: 1. Temperature elevations greater than 101 degrees F. 2. Uncontrollable pain. 3. Excessive bleeding. 4. Persistent nausea and vomiting. 5. Medication intolerance (nausea, vomiting or rash). * For nausea and vomiting use only clear liquids such as: tea, soda, bouillon until nausea subsides, then gradually increase diet as tolerated. * If you have any concerns or questions, call your surgeon's office. If physician is unavailable and it is an emergency, call 911 or go to the nearest emergency room. . Diet Recommendations Home Diet: resume previous diet Procedures Procedures Performed: Left Eye Cataract Phacoemulsification With Intraocular Lens Implant Pending Studies Studies pending at discharge: no Medical Emergencies . Who to Call and When: Medical Emergencies: If at any time you feel your situation is an emergency, please call 911 immediately. . Non-Emergent Contact Non-Emergency issues call your: Administrative Fellow . . "Provider Documentation" section prepared by Ronny Kennedy. .
[2017-12-24 09:40] VITALS: BP 128/83; PULSE 68; O2SAT 99
--- NOTE | 2017-12-24 09:41 | Anesthesia Progress Nt - [facility] ---
Anesthesia Post Op Note Date & Time Dec 24, 2017 at 09:41 Vital Signs Pain Intensity: 0 Vital Signs Past 12 Hours Date Time Temp Pulse Resp B/P (MAP) Pulse Ox O2 Delivery O2 Flow Rate FiO2 12/24/17 09:16 36.5 66 16 166/92 (116) 97 Room Air 12/24/17 07:46 36.7 77 16 156/97 (116) 95 Room Air Notes Mental Status: alert / awake / arousable, participated in evaluation Pt Amnestic to Procedure: Yes Nausea / Vomiting: adequately controlled Pain: adequately controlled Airway Patency, RR, SpO2: stable & adequate BP & HR: stable & adequate Hydration State: stable & adequate Anesthetic Complications: no major complications apparent
== END | disposition home or self-care (01) ==
LOC: X.SURG 07:11
PROVIDERS: ATTEND Ophthalmology
DX: H26.9 Unspecified cataract (principal); D50.9 Iron deficiency anemia, unspecified; F17.210 Nicotine dependence, cigarettes, uncomplicated; I77.9 Disorder of arteries and arterioles, unspecified; I73.9 Peripheral vascular disease, unspecified; Z79.82 Long term (current) use of aspirin; Z79.899 Other long term (current) drug therapy